=== PATIENT | female | born 1985 | race Two or more races ===

== ENCOUNTER 2017-10-01 11:00 | Inpatient (IN) | payer MEDICAID ==
[~2017-10-01] VITALS: Ht 160 cm; Wt 68.0 kg
[2017-10-01 03:00] VITALS: BP 109/67
[2017-10-01] MEDS ORDERED: PROMETHAZINE HCL 25 MG/ML 1ML IV PRN (13:15)
[2017-10-01] MEDS ORDERED: PHISODERM TOP SOLN 240ML BTL TOP PRN (13:15)
[2017-10-01] MEDS ORDERED: LIDOCAINE 2%HCL (LOCAL ANESTH.) INJ 20ML MDV IJ ONE (13:15)
[2017-10-01] MEDS ORDERED: PENICILLIN G POT 5MIL/D5 50ML 50 ML IV ONE (13:15)
[2017-10-01] MEDS ORDERED: WITCH HAZEL-GLYCERIN PAD TOP PRN (13:15)
[2017-10-01] MEDS ORDERED: NALBUPHINE HCL 10 MG/1ml INJECTION IV PRN (13:15)
[2017-10-01] MEDS ORDERED: DERMOPLAST 60ML BOTTLE TOP PRN (13:15)
[2017-10-01 13:42] LABS: Eosinophils # (auto) 0.1 uL; Eosinophils % (auto) 0.5 % (0.0-7.0); Mean Platelet Volume 7.4 fL (6.9-10.8); Monocytes # (auto) 0.6 uL
[2017-10-01 13:44] LABS: Basophils # (auto) 0 uL; Basophils % (auto) 0.4 % (0.0-2.0); Hematocrit 39.2 % (36.0-46.0); Hemoglobin 13.5 g/dL (12.2-16.2); Lymphocytes # (auto) 2.3 uL; Lymphocytes % (auto) 19.9 % (10.0-50.0); Mean Corpuscular Hemoglobin 32.2 pg (28.0-32.0); Mean Corpuscular Hgb Conc. 34.5 g/dL (32.0-36.0); Mean Corpuscular Volume 93.3 fL (80.0-100.0); Monocytes % (auto) 5.4 % (0.0-12.0); Neutrophils # (auto) 8.3 uL; Neutrophils % (auto) 73.8 % (37.0-80.0); Nucleated Red Blood Cells % 0.1 %; Platelet Count (auto) 602 10^3/uL (140-450); Red Cell Distribution Width 13.4 % (11.8-14.3); White Blood Cell 11.3 10^3/uL (4.4-10.8)
[2017-10-01] MEDS: LACTATED RINGER'S 1,000 ML IV SCH ×2 (13:49→21:02)
[2017-10-01 14:11] LABS: Albumin 2.7 g/dL (3.4-5.0); Calcium 8.4 mg/dL (8.5-10.1); Potassium 3.7 mmol/L (3.5-5.1); Total Protein 7.1 g/dL (6.4-8.2)
[2017-10-01] MEDS ORDERED: PREN-96 PO (14:28)
[2017-10-01] MEDS: PENICILLIN G POTASSIUM 2,500,000 UNITS in D5W 5% 50 ML IV SCH ×2 (17:27→21:15)
[2017-10-01] MEDS ORDERED: LACT. RINGERS/OXYTOCIN 20UNITS 1,000 ML IV SCH ×2 (17:36→23:32)
[2017-10-01] MEDS ORDERED: LACT. RINGERS/OXYTOCIN 20UNITS 1,000 ML IV ONE (17:36)
[2017-10-01] MEDS ORDERED: TERBUTALINE SULFATE 1 MG/ML 1ML VIAL SC ONE (17:45)
[2017-10-01 18:19] LABS: Urine Bilirubin Negative (Negative); Urine Blood Negative /uL (Negative); Urine Color Yellow (Yellow); Urine Glucose Normal (Normal); Urine Ketone 2+ (Negative); Urine Nitrite Negative (Negative); Urine RBC <1 /hpf (0 - 4); Urine Squamous Epithelial Cell FEW /hpf (<5); Urine Urobilinogen Normal (Negative)
[2017-10-01] MEDS ORDERED: IBUPROFEN 600 MG TAB PO ONE (22:19)
[2017-10-01] MEDS ORDERED: ACETAMINOPHEN 325 MG TAB PO PRN (22:45)
[2017-10-02] MEDS: PENICILLIN G POTASSIUM 2,500,000 UNITS in D5W 5% 50 ML IV SCH (01:15)
[2017-10-02 03:00] VITALS: BP 109/67
[2017-10-02] MEDS: IBUPROFEN 600 MG TAB PO PRN ×2 (03:05→11:40)
[2017-10-02 08:00] VITALS: BP 96/61
[2017-10-02 11:52] VITALS: BP 108/67
[2017-10-02] MEDS: LACTATED RINGER'S 1,000 ML IV SCH (12:00)
[2017-10-02 16:00] VITALS: BP 108/68
[2017-10-02 20:00] VITALS: BP 101/64
[2017-10-02 23:50] VITALS: BP 100/55
[2017-10-03 04:20] VITALS: BP 96/55
[2017-10-03 08:05] VITALS: BP 120/72
[2017-10-03 12:25] VITALS: BP 125/82
== END 2017-10-03 13:25 | disposition home or self-care (01) | DRG 560 ==
LOC: OBSVTOIN 11:00 → LDRP 11:00
PROVIDERS: ADMIT Specialist; ATTEND Specialist
PROC: 10E0XZZ Delivery of Products of Conception, External Approach (ICD-10-PCS; principal; 2017-10-01)
PROC: 10907ZC Drainage of Amniotic Fluid, Therapeutic from Products of Conception, Via Natural or Artificial Opening (ICD-10-PCS; 2017-10-01)
PROC: 0KQM0ZZ Repair Perineum Muscle, Open Approach (ICD-10-PCS; 2017-10-01)
DX: O62.3 Precipitate labor (principal); O99.824 Streptococcus B carrier state complicating childbirth; Z37.0 Single live birth; O70.1 Second degree perineal laceration during delivery; O69.1XX0 Labor and delivery complicated by cord around neck, with compression, not applicable or unspecified; Z3A.40 40 weeks gestation of pregnancy
CPT/HCPCS: 36415; 59025; 59409; 76805; 80053; 81001; 81002; 85025; 86850; 86900; 86901; 96365; 96366; J2540; J2590; J7060